=== PATIENT | female | born 1980 | race Caucasian/White ===

== ENCOUNTER → 2020-07-06 | Outpatient (CLI) | payer OTHER ==
--- NOTE | 2020-07-06 12:09 | PFTRPT ---
Height: 64.00 Inches Weight: 135.00 Lbs BSA: 1.66 Diagnosis: R06.2 DATE: 07/06/2020 ORDERING PHYSICIAN: Dagoberto Valencia Pre and post bronchodilator studies have excellent technical quality. Forced vital capacity is normal. FEV1 borderline proportion. Obstructive index is therefore borderline as well. Expiratory limit of the flow-volume loop is nonspecific flow rate limitation. No significant bronchodilator response is identified. Total lung capacity is borderline elevated. Residual volume is in proportion. Diffusing capacity is elevated. No hemoglobin available for correction. Airway resistance and conductance are normal. IMPRESSION: Nonspecific flow rate limitation with elevated diffusing capacity raises the question of underlying asthma. Please correlate clinically. MTDD
== END ==
LOC: M CARPUL 10:38
PROVIDERS: ATTEND Family Medicine
DX: R06.2 Wheezing (principal)

== ENCOUNTER → 2020-07-13 | Outpatient (CLI) | payer OTHER ==
[~2020-07-13] MED LIST: METHACHOLINE KIT (J7674) INH ONE
--- NOTE | 2020-07-13 14:31 | PFTRPT ---
Site: [facility], [address] [place], [address] ID: [id number] Name: GUSTABO HUBER Visit Date: 07/13/2020 Second ID: [id number] Referring Doctor: Dagoberto Valencia Reviewing Doctor: Joaquin Salazar MD Labor Supervisor: Roberto MARISCAL RRT Age: 39 : 1980 Sex: Female Race: Height: 64.00 Inches Weight: 135.00 Lbs BSA: 1.66 Order IDs: [id number] Requested Test(s): <RESP-PFT.METH CHAL> Diagnosis: WHEEZING of albuterol for post bronchodilator. Review Status: Not Reviewed Pre-Bronch Post-Bronch Pred Actual %Pred Actual %Chng SPIROMETRY FVC (L) 3.72 4.00 107 3.96 FEV1 (L) 3.06 2.94 95 2.83 -3 FEV1/FVC (%) 83 73 88 71 -2 FEF 25% (L/sec) 5.51 6.01 109 5.28 -12 FEF 50% (L/sec) 4.27 2.78 65 2.48 -10 FEF 75% (L/sec) 1.72 0.83 48 0.75 -9 FEF 25-75% (L/sec) 3.20 2.20 68 1.95 -11 FEF Max (L/sec) 6.99 6.30 90 5.79 -8 FIVC (L) 4.07 3.96 -2 FIF 50% (L/sec) 3.80 4.95 130 4.73 -4 FIF Max (L/sec) 5.01 4.73 -5 Expiratory Time (sec) 6.76 6.69 -1 Back Extrap Vol (L) 0.11 0.10 -7 Time To FEFmax (sec) 0.087 0.097 11
== END ==
LOC: M CARPUL 13:32
PROVIDERS: ATTEND Family Medicine
DX: R06.2 Wheezing (principal)
CPT/HCPCS: 94070; J7674

== ENCOUNTER → 2020-12-09 | Outpatient (CLI) | payer OTHER ==
[2020-12-09 09:46] LABS: ESTRADIOL 232.3 PG/ML; PROGESTERONE 52.2 NG/ML
== END ==
LOC: M LAB 07:37
PROVIDERS: ATTEND Obstetrics & Gynecology Reproductive Endocrinology
DX: Z31.49 Encounter for other procreative investigation and testing (principal)

== ENCOUNTER → 2020-12-14 | Outpatient (CLI) | payer OTHER ==
[2020-12-14 09:36] LABS: PROGESTERONE 51.61 NG/ML
== END ==
LOC: M LAB 07:31
PROVIDERS: ATTEND Obstetrics & Gynecology Reproductive Endocrinology
DX: Z32.00 Encounter for pregnancy test, result unknown (principal)

== ENCOUNTER → 2020-12-16 | Outpatient (CLI) | payer OTHER ==
[2020-12-16 09:08] LABS: THYROID STIMULATING HORMONE 3.16 uIU/ML (0.358-3.740)
[2020-12-16 11:04] LABS: ESTRADIOL 222.1 PG/ML; PROGESTERONE 58.61 NG/ML
== END ==
LOC: M LAB 07:51
PROVIDERS: ATTEND Obstetrics & Gynecology Reproductive Endocrinology
DX: Z32.01 Encounter for pregnancy test, result positive (principal)

== ENCOUNTER → 2021-01-27 | Outpatient (CLI) | payer OTHER ==
[2021-01-27 10:16] LABS: ESTRADIOL 715.5 PG/ML; PROGESTERONE 40.11 NG/ML
== END ==
LOC: M LAB 07:56
PROVIDERS: ATTEND Obstetrics & Gynecology Reproductive Endocrinology
DX: Z31.49 Encounter for other procreative investigation and testing (principal)

== ENCOUNTER → 2021-06-30 | Outpatient (CLI) | payer OTHER | LOC: M EKG 14:04 | PROVIDERS: ATTEND Obstetrics & Gynecology | DX: R06.02 Shortness of breath (principal); R00.2 Palpitations ==

== ENCOUNTER 2021-07-27 15:01 | Outpatient (CLI) | payer OTHER ==
[~2021-07-27] VITALS: Ht 162.6 cm; Wt 76.8 kg
[2021-07-27 15:23] VITALS: BP 121/58
[2021-07-27] MEDS ORDERED: TUMS500C PO (15:33)
[2021-07-27] MEDS ORDERED: PRENTAB9 PO (15:33)
[2021-07-27 16:49] VITALS: BP 115/59
== END 2021-07-27 17:20 | disposition home or self-care (01) ==
LOC: M LDO 15:01
PROVIDERS: ATTEND Advanced Practice Midwife
DX: O40.3XX0 Polyhydramnios, third trimester, not applicable or unspecified (principal); O34.219 Maternal care for unspecified type scar from previous cesarean delivery; Z3A.36 36 weeks gestation of pregnancy; Z88.8 Allergy status to other drugs, medicaments and biological substances
CPT/HCPCS: 59025; G0463

== ENCOUNTER 2021-08-16 07:06 | Inpatient (IN) | payer OTHER ==
[2021-08-16] VITALS (8 sets, daily range): BP systolic 99–142; BP diastolic 52–81
[~2021-08-16] VITALS: Ht 162.6 cm; Wt 77.2 kg
[~2021-08-16 07:06] MED LIST changes: +FAMO20TA PO; +FISH1000 PO; +LEVO50TA5 PO; -METHACHOLINE KIT (J7674) INH ONE; +PRENTAB9 PO; +TUMS500C PO; +VENTAER INH
[2021-08-16] MEDS ORDERED: LACTATED RINGER'S 1000 ML IV STA (08:13)
[2021-08-16] MEDS ORDERED: TRANEXAMIC ACID INJection 1,000 MG in NS 100 ML IV PRN (08:15)
[2021-08-16] MEDS ORDERED: OXYTOCIN DRIP 30 UNITS in IV 1 EA IV PRN (08:15)
[2021-08-16] MEDS ORDERED: METHYLERGONOVINE MALEATE 0.2 MG/ML VIAL (J2210) IM PRN (08:15)
[2021-08-16] MEDS ORDERED: LR 1,000 ML IV SCH ×3 (08:15→12:00)
[2021-08-16] MEDS ORDERED: CARBOPROST TROMETHAMINE 250 MCG/ML AMP IM PRN (08:15)
[2021-08-16 08:18] LABS: HEMATOCRIT 34.4 % (36.0-47.0); HEMOGLOBIN 11.8 g/dl (12.0-15.5); MEAN CORPUSCULAR HEMOGLOBIN 29.9 pg (27.0-33.0); MEAN CORPUSCULAR HGB CONC 34.3 g/dl (32.0-36.5); MEAN CORPUSCULAR VOLUME 87.3 fl (80.0-96.0); PLATELET COUNT, AUTOMATED 226 10^3/uL (150-450); RED BLOOD COUNT 3.94 10^6/uL (4.00-5.40); WHITE BLOOD COUNT 10.9 10^3/uL (4.0-10.0)
[2021-08-16] MEDS ORDERED: CLINDAMYCIN 900 MG in IV 1 EA IV ONE (08:20)
[2021-08-16] MEDS ORDERED: LR 1,000 ML IV ONE (08:20)
[2021-08-16] MEDS ORDERED: BICITRA 30ML SOLN UDC PO ONE (08:20)
[2021-08-16] MEDS ORDERED: D5W IV ONE (09:00)
[2021-08-16] MEDS ORDERED: GENTAMICIN IV ONE (09:00)
[2021-08-16] MEDS ORDERED: diphenhydrAMINE 50MG/ML VIAL (J1200) IV PRN (10:26)
[2021-08-16] MEDS ORDERED: NALOXONE INJ 0.4MG/1ML VIAL (J2310 PER 1MG) IV PRN ×2 (10:26)
[2021-08-16] MEDS ORDERED: ONDANSETRON 4MG/2ML VIAL IV PRN ×3 (10:26→12:00)
[2021-08-16] MEDS ORDERED: METOCLOPRAMIDE INJ 10MG/2ML VIAL (J2765 PER 1) IV PRN (10:26)
[2021-08-16] MEDS ORDERED: PHENYLephrine 500MCG 5ML (100MCG/ML) SYRINGE As Ordered ONE (10:30)
[2021-08-16] MEDS ORDERED: METOCLOPRAMIDE INJ 10MG/2ML VIAL (J2765 PER 1) As Ordered ONE (10:57)
[2021-08-16] MEDS ORDERED: BUPIVACAINE HCL 0.25% 10ML VIAL As Ordered ONE (11:15)
[2021-08-16] MEDS ORDERED: KETOROLAC 60MG 2ML VIAL As Ordered ONE (11:18)
[2021-08-16] MEDS ORDERED: dexameTHASONE 4 MG/ML 1ML VIAL (J1100 PER 1MG) As Ordered ONE (11:18)
[2021-08-16] MEDS ORDERED: MORPHINE PRES-FREE INJ 10 MG/10 ML VIAL As Ordered ONE (11:18)
[2021-08-16] MEDS ORDERED: ONDANSETRON 4MG/2ML VIAL As Ordered ONE (11:19)
[2021-08-16] MEDS ORDERED: OXYTOCIN INJ 10 UNITS/ML VIAL (J2590) As Ordered ONE (11:19)
[2021-08-16] MEDS ORDERED: BUPIVACAINE HCL 0.25% 10ML VIAL SC ONE (11:20)
[2021-08-16] MEDS ORDERED: OXYTOCIN 30 UNITS IN 0.9% NaCl 500ML IV BAG (J2590) As Ordered ONE (11:23)
[2021-08-16] MEDS ORDERED: ACETAMINOPHEN 1000MG 100ML IV BTL (OFIRMEV) (J0131 PER 10MG) As Ordered ONE (11:28)
[2021-08-16] MEDS ORDERED: MORPHINE 4 MG/ML 1ML VIAL/SYRINGE IV PRN (11:30)
[2021-08-16] MEDS ORDERED: DOCUSATE SODIUM 100MG CAPSULE PO PRN (11:30)
[2021-08-16] MEDS ORDERED: oxyCODONE 5MG TAB PO PRN ×2 (11:30)
[2021-08-16] MEDS ORDERED: RHOGAM 300 MCG (1500 IU) INJ (J2790) IM SCH (11:30)
[2021-08-16] MEDS ORDERED: MEASLES,MUMPS,RUBELLA VACCINE INJ (MMR-II) (90707) SC SCH (11:30)
[2021-08-16] MEDS ORDERED: SIMETHICONE 80MG CHEW TAB PO PRN (11:30)
[2021-08-16] MEDS ORDERED: ACETAMINOPHEN 500 MG TAB PO PRN (11:30)
[2021-08-16] MEDS ORDERED: PROMETHAZINE 25 MG TAB PO PRN (11:30)
[2021-08-16] MEDS ORDERED: OXYTOCIN DRIP 30 UNITS in IV 1 EA IV SCH (11:30)
[2021-08-16] MEDS ORDERED: PERCOCET 5MG/325MG TAB PO PRN (12:00)
[2021-08-16] MEDS ORDERED: fentaNYL 100 MCG/2 ML INJECTION IV PRN (12:00)
[2021-08-16] MEDS: LR 1,000 ML IV SCH (14:20)
[2021-08-16] MEDS: KETOROLAC 30 MG/ML 1ML VIAL IV SCH (16:58)
[2021-08-17] MEDS: LR 1,000 ML IV SCH (00:22)
[2021-08-17] MEDS: KETOROLAC 30 MG/ML 1ML VIAL IV SCH ×2 (00:23→05:34)
[2021-08-17 02:04] VITALS: BP 129/58
[2021-08-17] MEDS: LEVOTHYROXINE 50MCG TABLET (0.05MG) PO SCH (05:33)
[2021-08-17 05:58] VITALS: BP 106/59
[2021-08-17 08:03] LABS: HEMATOCRIT 32.6 % (36.0-47.0); HEMOGLOBIN 10.9 g/dl (12.0-15.5); MEAN CORPUSCULAR HEMOGLOBIN 30.3 pg (27.0-33.0); MEAN CORPUSCULAR HGB CONC 33.4 g/dl (32.0-36.5); MEAN CORPUSCULAR VOLUME 90.6 fl (80.0-96.0); PLATELET COUNT, AUTOMATED 255 10^3/uL (150-450); WHITE BLOOD COUNT 15.6 10^3/uL (4.0-10.0)
[2021-08-17] MEDS: PRENATAL VITAMINS CHEWABLE TABLET PO SCH (08:45)
[2021-08-17 10:00] VITALS: BP 109/61
[2021-08-17] MEDS: IBUPROFEN 800 MG TAB PO SCH ×2 (13:01→21:14)
[2021-08-17 14:00] VITALS: BP 111/57
[2021-08-17 18:01] VITALS: BP 100/55
[2021-08-17 22:00] VITALS: BP 106/59
[2021-08-18 01:43] VITALS: BP 111/58
[2021-08-18] MEDS: LEVOTHYROXINE 50MCG TABLET (0.05MG) PO SCH (05:17)
[2021-08-18] MEDS: IBUPROFEN 800 MG TAB PO SCH (05:18)
[2021-08-18 05:47] VITALS: BP 110/58
[2021-08-18] MEDS ORDERED: ACET-683 PO (06:46)
[2021-08-18] MEDS ORDERED: OXYC-517 PO (06:46)
[2021-08-18] MEDS ORDERED: IBUP80TA PO (06:46)
[2021-08-18] MEDS: PRENATAL VITAMINS CHEWABLE TABLET PO SCH (07:44)
== END 2021-08-18 11:45 | disposition home or self-care (01) | DRG 773 ==
LOC: M LDI 07:06 → M OBS 13:09
PROVIDERS: ADMIT Obstetrics & Gynecology; ATTEND Obstetrics & Gynecology
PROC: 10D00Z1 Extraction of Products of Conception, Low, Open Approach (ICD-10-PCS; principal; 2021-08-16 09:30)
DX: O34.211 Maternal care for low transverse scar from previous cesarean delivery (principal); E03.9 Hypothyroidism, unspecified; O99.284 Endocrine, nutritional and metabolic diseases complicating childbirth; O09.523 Supervision of elderly multigravida, third trimester; Z3A.39 39 weeks gestation of pregnancy; Z88.0 Allergy status to penicillin; Z79.899 Other long term (current) drug therapy; Z37.0 Single live birth

== ENCOUNTER → 2024-02-03 | Outpatient (CLI) | payer OTHER ==
[~2024-02-03] MED LIST changes: +ACET-683 PO; +IBUP80TA PO; +OXYC-517 PO
== END ==
LOC: M WHC 01-27 15:24
PROVIDERS: ATTEND Nurse Practitioner Primary Care
DX: Z12.31 Encounter for screening mammogram for malignant neoplasm of breast (principal)